=== PATIENT | male | born 1940 | race Caucasian/White ===

== ENCOUNTER 2018-06-10 08:16 | Day surgery (SDC) | payer MEDICARE, OTHER ==
[2018-06-10] VITALS (12 sets, daily range): BP systolic 98–132; BP diastolic 63–81
[~2018-06-10] VITALS: Ht 195.6 cm; Wt 118.6 kg
[2018-06-10] MEDS ORDERED: MIDAZolam 5mg/ml 2ml vial IV PRN (08:40)
[2018-06-10] MEDS ORDERED: normal saline 1000ml 1,000 ML IV SCH (08:40)
[2018-06-10] MEDS ORDERED: fentaNYL/PF 50MCG/1 ML 2ML syringe IV PRN (08:40)
[2018-06-10 09:23] LABS: BASOPHILS % (AUTO) 0.3 % (0-1); EOSINOPHILS # (AUTO) 0.1 X10'3 (0-0.9); EOSINOPHILS % (AUTO) 1.6 % (0-6); HEMATOCRIT 41.7 % (42.0-52.0); HEMOGLOBIN 14.4 g/dl (14.0-17.9); LYMPHOCYTES # (AUTO) 0.6 X10'3 (1.1-4.8); LYMPHOCYTES % (AUTO) 14.7 % (21-51); MEAN CORPUSCULAR HEMOGLOBIN 33.5 PG (27.0-31.0); MEAN CORPUSCULAR HGB CONC 34.4 % (33.0-36.5); MEAN CORPUSCULAR VOLUME 97.2 FL (78-98); MEAN PLATELET VOLUME 7.5 FL (7.4-10.4); MONOCYTES # (AUTO) 0.2 X10'3 (0-0.9); MONOCYTES % (AUTO) 5.7 % (2-12); NEUTROPHILS # (AUTO) 3.2 X10'3 (1.8-7.7); NEUTROPHILS % (AUTO) 77.7 % (42-75); PLATELET COUNT 147 X10'3 (140-440); RED BLOOD COUNT 4.29 X10'6 (4.70-6.10); RED CELL DISTRIBUTION WIDTH 13.8 % (11.5-14.5); WHITE BLOOD COUNT 4.1 X10'3 (4.5-11.0)
[2018-06-10 09:32] LABS: ALBUMIN 3.6 G/DL (3.4-5.0); ANION GAP 9 (8-16); BLOOD UREA NITROGEN 20 MG/DL (7-18); BUN/CREATININE RATIO 21.5 (5.4-32.0); CHLORIDE 102 MMOL/L (99-107); CREATININE 0.93 MG/DL (0.60-1.10); GLUCOSE 147 MG/DL (70-104); MAGNESIUM 1.5 MG/DL (1.5-2.4); POTASSIUM 4.2 MMOL/L (3.5-5.1); SODIUM 138 MMOL/L (135-145); TOTAL CARBON DIOXIDE 26.9 MMOL/L (24-32); eGFR 79 ML/MIN
[2018-06-10 09:33] LABS: INR 1.1 INR; PROTHROMBIN TIME 11.3 SECONDS (9.0-12.0)
[2018-06-10] MEDS ORDERED: MESA500C PEG (13:46)
[2018-06-10] MEDS ORDERED: LISI-600 PO (13:46)
[2018-06-10] MEDS ORDERED: METF-438 PO (13:46)
[2018-06-10] MEDS ORDERED: HYDR12.5 PO (13:46)
[2018-06-10] MEDS ORDERED: ASPI-1264 PO (13:46)
[2018-06-10] MEDS ORDERED: FOLI0.4T2 PO (13:46)
[2018-06-10] MEDS ORDERED: FOLI1TAB16 PO (13:46)
[2018-06-10] MEDS ORDERED: GLIP10TA11 PO (13:46)
[2018-06-10] MEDS ORDERED: SIMV10TA2 PO (13:46)
[2018-06-10] MEDS ORDERED: NIA500ERT PO (13:46)
[2018-06-10] MEDS ORDERED: APIX5TAB3 PO (13:46)
== END 2018-06-10 14:00 | disposition home or self-care (01) ==
LOC: SSTAY O 08:16
PROVIDERS: ATTEND Internal Medicine Cardiovascular Disease
DX: I48.1 Persistent atrial fibrillation (principal); I48.3 Typical atrial flutter; I10 Essential (primary) hypertension; E78.5 Hyperlipidemia, unspecified; I44.1 Atrioventricular block, second degree; E11.9 Type 2 diabetes mellitus without complications; K50.119 Crohn's disease of large intestine with unspecified complications; Z95.0 Presence of cardiac pacemaker; Z88.0 Allergy status to penicillin; Z87.891 Personal history of nicotine dependence; Z87.442 Personal history of urinary calculi; Z85.828 Personal history of other malignant neoplasm of skin; Z79.84 Long term (current) use of oral hypoglycemic drugs; Z79.82 Long term (current) use of aspirin; Z79.01 Long term (current) use of anticoagulants; Z79.899 Other long term (current) drug therapy; Z98.890 Other specified postprocedural states; Z82.49 Family history of ischemic heart disease and other diseases of the circulatory system; Z81.1 Family history of alcohol abuse and dependence; Z83.3 Family history of diabetes mellitus; Z81.8 Family history of other mental and behavioral disorders; Z82.69 Family history of other diseases of the musculoskeletal system and connective tissue
CPT/HCPCS: 36415; 80048; 83735; 85025; 85610; 92960; J2250; J3010; J7030

== ENCOUNTER 2024-12-27 08:00 | Day surgery (SDC) | payer MEDICARE, OTHER ==
[~2024-12-27] VITALS: Ht 182.9 cm; Wt 88.3 kg
[2024-12-27] VITALS (10 sets, daily range): BP systolic 94–127; BP diastolic 46–72; PULSE 60–74; RESP 10–15; TEMP 98.1; O2SAT 98–100
[~2024-12-27 08:00] MED LIST: APIX5TAB3 PO; ASPI-1264 PO; FOLI0.4T6 PO; FOLI1TAB27 PO; GLIP10TA18 PO; HYDR12.5 PO; LISI20TA28 PO; MESA500C PEG; METF-438 PO; NIA500ERT PO; SIMV-341 PO
[2024-12-27] MEDS ORDERED: clindamycin-Cleocin 900mg/D5W 50 ML IV ONE (08:30)
--- NOTE | 2024-12-27 08:40 | ELECTROCARDIOGRAPH REPORT ---
[facility] Test Date: 2024-12-27 Test Time: 08:39:33 Pat Name: ADDY MIRELES Department: [facility] O Patient ID: [id number] Room: Gender: M Geographic Information System Analyst: VIOLETTE : 1940 Requested By: MARELY ZARATE Order Number: [id number] Reading MD: Dr. RAGHU Kaufman Measurements Intervals [place] Rate: 65 P: 223 ID: [id number] QRS: 27 QRSD: 133 T: 175 QT: 474 QTc: 493 Interpretive Statements Ventricular-paced complexes No further rhythm analysis attempted due to paced rhythm Vent pre-excit'n(WPW), right access'y pathway Electronically Signed On 12-27-2024 19:16:[address] RAGHU Kaufman Please click the below link to view image of tracing.
[2024-12-27 08:51] LABS: MEAN PLATELET VOLUME 7.9 FL (7.4-10.4); RED CELL DISTRIBUTION WIDTH 16.1 % (11.5-14.5)
[2024-12-27] MEDS ORDERED: MELA5TAB50 PO (08:51)
[2024-12-27] MEDS ORDERED: LEVO15TA5 PO (08:51)
[2024-12-27] MEDS ORDERED: CYAN10007 IM (08:51)
[2024-12-27] MEDS ORDERED: FLEC100T35 PO (08:51)
[2024-12-27] MEDS ORDERED: [UNRECOGNIZED DRUG - CODE] PO (08:51)
[2024-12-27] MEDS ORDERED: MESA1.2T3 PO (08:51)
[2024-12-27] MEDS ORDERED: SIMV-45 PO (08:51)
[2024-12-27] MEDS ORDERED: CARB1TAB42 PO (08:51)
[2024-12-27] MEDS ORDERED: GLUC1TAB75 PO (08:51)
[2024-12-27] MEDS ORDERED: MULT-1085 PO (08:51)
[2024-12-27] MEDS ORDERED: CARB1TAB37 PO (08:51)
[2024-12-27 09:04] LABS: INR 1.1 INR
[2024-12-27] MEDS: VANCOMYCIN/H2O 1.5g/300mL PB 300 ML IV ONE (09:04)
[2024-12-27] MEDS: normal saline 1000ml 1,000 ML IV SCH (09:04)
[2024-12-27 09:05] LABS: CREATININE 0.89 MG/DL (0.60-1.10); TOTAL CARBON DIOXIDE 29.2 MMOL/L (24-32); eCRCL 68 ML/MIN; eGFR 81 ML/MIN
[2024-12-27] MEDS ORDERED: midazolam 1 mg/ML 2ml injection ONE (11:50)
[2024-12-27] MEDS ORDERED: vancomycin 1,000mg inj ONE (11:50)
[2024-12-27] MEDS ORDERED: fentaNYL/PF 50MCG/1 ML 2ML syringe ONE (11:50)
[2024-12-27] MEDS ORDERED: iohexol 350 MG/ML 50ML vial IV ONE (11:50)
[2024-12-27] MEDS ORDERED: LIDOcaine 1% W/epiNEPHrine 1:100,000 20ml vial ONE (11:50)
--- NOTE | 2024-12-27 18:35 | CARDIOLOGY REPORT ---
DATE OF SERVICE: 12/27/2024 DICTATING PHYSICIAN: MARELY ZARATE DO CARDIAC CATHETERIZATION REPORT REFERRING PHYSICIAN: Marely Zarate DO CLINICAL HISTORY: This 84-year-old man has a permanent pacemaker, which was implanted in mid 01/2018 for symptomatic bradycardia/sick sinus syndrome. The generator is now at the elective replacement interval. PROCEDURES PERFORMED: * Removal of the existing pacemaker pulse generator. * Pacemaker pocket revision. * Implant of new pacemaker pulse generator. PREOPERATIVE DIAGNOSES: * Sick sinus syndrome. * Pacemaker pulse generator at the elective replacement interval. POSTOPERATIVE DIAGNOSES: * Sick sinus syndrome. * Pacemaker pulse generator at the elective replacement interval. ANESTHESIA: Conscious sedation with local to skin. DEVICE REMOVED: Medtronic pulse generator model number W1DR01 and serial number [id number]. EXISTING ELECTRODES: Medtronic RV electrode model number 3830 and serial number [id number]; Medtronic atrial electrode model number 5076 and serial number [id number]. DEVICES IMPLANTED: [employer] Pulse Generator model number 387497 and serial number [id number]. ESTIMATED BLOOD LOSS: Essentially nil. COMPLICATIONS: None. DESCRIPTION OF PROCEDURE: The patient was sedated with fentanyl and Versed. He was then prepared and draped in the usual manner. The left pectoral region was liberally infiltrated with 1% lidocaine containing of 1:100,000 mixture of epinephrine. The pacemaker pocket was then opened by incising along the existing scar line. The generator encapsulation was exposed and most of the capsule was excised. The generator was removed. Adhesions around the electrodes were lysed and the pocket was enlarged in an inferolateral direction. The electrodes were then switched over from the old to the new generator and together they were replaced in the pocket. The generator was suspended with an #0 Ethibond suture. The pocket was then irrigated with a vancomycin antibiotic solution. The subcutaneous layer was closed with 3-0 Vicryl, and the skin was approximated with 4-0 Monocryl. Initial angie parameters were as follows: Mode DDDR, LRL 60 ppm. Upper tracking rate, 130 ppm. Right atrial capture threshold was 0.5 volts, impedance 410 ohms, sensing at 2 millivolts. Right ventricular capture threshold was 0.6 volts with an impedance of 352 ohms and sensing at 4 millivolts. MARELY ZARATE DO TID: [id number] RECEIPT: [id number] ANA MARIA/АННА
== END 2024-12-27 17:00 | disposition home or self-care (01) ==
LOC: SSTAY O 08:00
PROVIDERS: ATTEND Internal Medicine Cardiovascular Disease
DX: Z45.010 Encounter for checking and testing of cardiac pacemaker pulse generator [battery] (principal); I49.5 Sick sinus syndrome; I10 Essential (primary) hypertension; E78.5 Hyperlipidemia, unspecified; E11.9 Type 2 diabetes mellitus without complications; I48.0 Paroxysmal atrial fibrillation; I48.3 Typical atrial flutter; G47.30 Sleep apnea, unspecified; Z79.01 Long term (current) use of anticoagulants; Z79.84 Long term (current) use of oral hypoglycemic drugs; Z79.899 Other long term (current) drug therapy; Z98.890 Other specified postprocedural states; Z88.0 Allergy status to penicillin; Z83.3 Family history of diabetes mellitus; Z82.49 Family history of ischemic heart disease and other diseases of the circulatory system
CPT/HCPCS: 33228; 36415; 80048; 83735; 85025; 85610; 93005; 99152; 99153; A6258; C1785; J2250; J3010; J3373; J3375; J3490; J7030; Z7610; Q9967